=== PATIENT | female | born 1975 | race Caucasian/White ===

== ENCOUNTER 2020-11-17 06:31 | Emergency (ER) | payer OTHER ==
[~2020-11-17] VITALS: Ht 172.7 cm; Wt 141.8 kg
--- NOTE | 2020-11-17 07:25 | NUR ---
PT UP TO BR WITH STEADY GAIT. PER PROVIDER NO UA NEEDED
--- NOTE | 2020-11-17 07:53 | NUR ---
ASSISTED ERP WITH PELVIC EXAM
== END 2020-11-17 09:07 | disposition home or self-care (01) ==
LOC: ED 07:17
DX: T19.2XXA Foreign body in vulva and vagina, initial encounter (principal); I10 Essential (primary) hypertension; X58.XXXA Exposure to other specified factors, initial encounter; Y93.89 Activity, other specified; Y92.89 Other specified places as the place of occurrence of the external cause; Y99.8 Other external cause status
CPT/HCPCS: 99284